=== PATIENT | female | born 1945 | race Hispanic/Latino ===

== ENCOUNTER 2017-08-10 17:33 | Inpatient (IN) | payer MEDICARE ==
[2017-08-09 22:30] VITALS: BP 136/84
[~2017-08-10] VITALS: Ht 165.1 cm; Wt 86.4 kg
[2017-08-10 18:08] LABS: BASOPHILS % (AUTO) 1.7 % (0.0-5.0); EOSINOPHILS % (AUTO) 8.1 % (0.0-8.0); HEMATOCRIT 43.8 % (36-48); LYMPHOCYTES % (AUTO) 24.7 % (21.0-51.0); MEAN CORPUSCULAR HEMOGLOBIN 30.5 pg (27.0-33.0); MEAN CORPUSCULAR HGB CONC 34.4 g/dL (32.0-36.0); MEAN CORPUSCULAR VOLUME 88.5 fL (79-99); NEUTROPHILS % (AUTO) 55.5 % (40.0-77.0); NUCLEATED RED BLOOD CELLS 0.1 % (0.0-0.19); PLATELET COUNT (AUTO) 237 K/uL (130-400); RED BLOOD CELL COUNT(AUTO) 4.96 MIL/uL (4.00-5.50); RED CELL DISTRIBUTION WIDTH 14.7 % (11.0-15.5); WHITE BLOOD COUNT (AUTO) 7.4 K/uL (4.8-10.8)
[2017-08-10] MEDS ORDERED: ASPIRIN 325 MG TABLET ONE (18:10)
[2017-08-10 18:11] LABS: CREATININE 0.8 mg/dL (0.5-1.5); POTASSIUM 3.7 mmol/L (3.5-5.1)
[2017-08-10] MEDS ORDERED: METHYLPREDNISOLONE SOD SUCC 125MG/2ML VIAL ONE (18:11)
[2017-08-10 18:12] LABS: INR 1.02 (0.85-1.15); PROTHROMBIN TIME 10.7 SEC (9.6-11.6)
[2017-08-10 18:16] LABS: ALBUMIN 3.7 g/dL (3.5-5.0); BILIRUBIN,TOTAL 0.7 mg/dL (0.2-1.0); TOTAL PROTEIN, SERUM 7.7 g/dL (6.0-8.3)
[2017-08-10] MEDS ORDERED: IPRATROPIUM/ALBUTEROL SULFATE 3 ML SOLUTION IH ONE (18:23)
[2017-08-10] MEDS ORDERED: ALBUTEROL SULFATE 0.083% 2.5 MG/3 ML INH IH ONE ×2 (18:24→19:49)
[2017-08-10 18:32] LABS: B-TYPE NATRIURETIC PEPTIDE < 5 pg/mL (0-100)
[2017-08-10 18:42] LABS: ABG BASE EXCESS 2.1 mmol/L (-2.0-3.0); ABG HCO3 26.7 mmol/L (21.0-28.0); ABG OXYGEN SATURATION 92.7 % (95.0-99.0); ABG PCO2 42 mmHg (32-45)
[2017-08-10] MEDS ORDERED: LEVOFLOXACIN 500 MG/D5W 100 ML 100 ML ONE (19:51)
[2017-08-10] MEDS ORDERED: ACETAMINOPHEN 325 MG TAB PO PRN ×2 (21:45)
[2017-08-10] MEDS ORDERED: POTASSIUM CHLORIDE 10% ELIXIR 20 MEQ/15 ML UDCUP PO PRN (21:45)
[2017-08-10] MEDS ORDERED: CLONIDINE HCL 0.1 MG TABLET PO PRN (21:45)
[2017-08-10] MEDS ORDERED: LIDOCAINE HCL-MPF 1% 2ML VIAL IJ PRN (21:45)
[2017-08-10] MEDS ORDERED: POTASSIUM CHLORIDE 20MEQ/100ML 100 ML IV PRN (21:45)
[2017-08-10] MEDS ORDERED: GUAIFENESIN-DM 200/20 MG 10 ML PO PRN (21:45)
[2017-08-10] MEDS ORDERED: LACTULOSE 20 GM/30 ML UDCUP PO PRN (21:45)
[2017-08-10] MEDS ORDERED: METHYLPREDNISOLONE SOD SUCC 125MG/2ML VIAL IVP SCH (21:45)
[2017-08-10] MEDS: IPRATROPIUM/ALBUTEROL SULFATE 3 ML SOLUTION IH SCH (23:06)
[2017-08-10] MEDS: FAMOTIDINE 20MG TAB 20 MG TAB PO SCH (23:39)
[2017-08-11] MEDS: IPRATROPIUM/ALBUTEROL SULFATE 3 ML SOLUTION IH SCH ×4 (02:06→22:03)
[2017-08-11 04:00] VITALS: BP 150/88
[2017-08-11 04:10] LABS: HEMATOCRIT 42.6 % (36-48); MEAN CORPUSCULAR HEMOGLOBIN 31.1 pg (27.0-33.0); MEAN CORPUSCULAR HGB CONC 34.9 g/dL (32.0-36.0); PLATELET COUNT (AUTO) 216 K/uL (130-400); RED BLOOD CELL COUNT(AUTO) 4.78 MIL/uL (4.00-5.50); RED CELL DISTRIBUTION WIDTH 14.2 % (11.0-15.5); WHITE BLOOD COUNT (AUTO) 5.3 K/uL (4.8-10.8)
[2017-08-11 04:34] LABS: CREATININE 0.9 mg/dL (0.5-1.5); POTASSIUM 3.6 mmol/L (3.5-5.1)
[2017-08-11] MEDS: POTASSIUM CHLORIDE 20 MEQ ERTAB PO PRN ×2 (07:00→09:50)
[2017-08-11 08:00] VITALS: BP 143/87
[2017-08-11] MEDS ORDERED: PNEUMOCOCCAL VACCINE POLYVALENT 0.5 ML/VIAL [PPV] IM SCH (08:15)
[2017-08-11] MEDS ORDERED: ACETAMINOPHEN-CODEINE 300/30MG TAB PO PRN ×2 (08:30)
[2017-08-11] MEDS: FAMOTIDINE 20MG TAB 20 MG TAB PO SCH ×2 (08:55→22:44)
[2017-08-11 12:00] VITALS: BP 138/89
[2017-08-11 16:00] VITALS: BP 140/77
[2017-08-11] MEDS: ENOXAPARIN SODIUM 30 MG/0.3 ML SQ SCH (16:14)
[2017-08-11] MEDS: METHYLPREDNISOLONE SOD SUCC 125MG/2ML VIAL IVP SCH ×2 (16:14→22:44)
[2017-08-11] MEDS ORDERED: VALS1TAB75 PO (17:11)
[2017-08-11] MEDS ORDERED: PARO-37 PO (17:11)
[2017-08-11] MEDS: BUDESONIDE 0.5 MG/2 ML INH IH SCH (18:43)
[2017-08-11 19:00] VITALS: BP 139/95
[2017-08-11] MEDS: LEVOFLOXACIN 500 MG/D5W 100 ML 100 ML IV SCH (22:43)
[2017-08-12] VITALS: BP 134/76
[2017-08-12 04:00] VITALS: BP 129/84
[2017-08-12] MEDS: IPRATROPIUM/ALBUTEROL SULFATE 3 ML SOLUTION IH SCH ×3 (06:58→21:17)
[2017-08-12] MEDS: BUDESONIDE 0.5 MG/2 ML INH IH SCH ×2 (07:25→18:48)
[2017-08-12 09:22] VITALS: BP 143/88
[2017-08-12 11:35] VITALS: BP 129/65
[2017-08-12] MEDS: FAMOTIDINE 20MG TAB 20 MG TAB PO SCH ×2 (11:40→21:55)
[2017-08-12] MEDS: METHYLPREDNISOLONE SOD SUCC 125MG/2ML VIAL IVP SCH ×2 (11:41→21:55)
[2017-08-12] MEDS: ENOXAPARIN SODIUM 30 MG/0.3 ML SQ SCH (11:42)
[2017-08-12 15:57] VITALS: BP 131/73
[2017-08-12 19:43] VITALS: BP 135/88
[2017-08-12] MEDS: LEVOFLOXACIN 500 MG/D5W 100 ML 100 ML IV SCH (21:55)
[2017-08-13] VITALS: BP 137/74
[2017-08-13 04:37] VITALS: BP 148/74
[2017-08-13] MEDS: IPRATROPIUM/ALBUTEROL SULFATE 3 ML SOLUTION IH SCH (06:47)
[2017-08-13] MEDS: BUDESONIDE 0.5 MG/2 ML INH IH SCH (07:00)
[2017-08-13 07:30] VITALS: BP 120/76
[2017-08-13] MEDS ORDERED: VALSARTAN HCTZ PO SCH (09:00)
[2017-08-13] MEDS ORDERED: PAROXETINE HCL 20 MG TABLET PO SCH (09:00)
[2017-08-13] MEDS: FAMOTIDINE 20MG TAB 20 MG TAB PO SCH (09:05)
[2017-08-13] MEDS: METHYLPREDNISOLONE SOD SUCC 125MG/2ML VIAL IVP SCH (09:05)
[2017-08-13] MEDS: ENOXAPARIN SODIUM 30 MG/0.3 ML SQ SCH (09:06)
== END 2017-08-13 11:18 | disposition home or self-care (01) | DRG 191 ==
LOC: EDH 17:33 → OBSVTOIN 20:22 → EDHIP 20:22 → 3DH 22:36
PROVIDERS: ADMIT Family Medicine; ATTEND Family Medicine
PROC: 3E0234Z Introduction of Serum, Toxoid and Vaccine into Muscle, Percutaneous Approach (ICD-10-PCS; principal; 2017-08-11)
DX: J44.1 Chronic obstructive pulmonary disease with (acute) exacerbation (principal); J98.11 Atelectasis; I10 Essential (primary) hypertension; Z72.0 Tobacco use; R09.02 Hypoxemia; Z23 Encounter for immunization
CPT/HCPCS: 36415; 36600; 71045; 71250; 80048; 80053; 82550; 82803; 83880; 84132; 84484; 85025; 85027; 85610; 85730; 87804; 93005; 94640; 94664; 99291; J1650; J1956; J2930